=== PATIENT | female | born 1985 | race Two or more races ===

== ENCOUNTER 2018-09-03 16:57 | Emergency (ER) | payer MEDICAID, OTHER ==
[~2018-09-03] VITALS: Ht 154.9 cm; Wt 109.0 kg
[~2018-09-03 16:57] MED LIST: CYCLOBENZAPRINE; METHOCARBAMOL
[2018-09-03 23:59] LABS: CHLORIDE 102 mEq/L (98-107)
[2018-09-03 23:59] LABS: CLARITY URINE CLEAR (CLEAR); COLOR URINE YELLOW (YELLOW); KETONES URINE TRACE (NEGATIVE); LEUKOCYTE ESTERASE URINE NEGATIVE (NEGATIVE); NITRITE URINE NEGATIVE (NEGATIVE); OCCULT BLOOD URINE NEGATIVE (NEGATIVE); PROTEIN URINE NEGATIVE (NEGATIVE); SPECIFIC GRAVITY URINE 1.026 (1.005-1.030); UROBILINOGEN URINE 0.2 E.U./dL (0.2-1.0)
[2018-09-04] LABS: BASOPHILS % 1.2 % (0.0-2.0); HEMATOCRIT. 42.5 % (36.0-48.0); HEMOGLOBIN. 13.8 g/dL (12.0-16.0); LYMPHOCYTES % 48.2 % (20.0-50.0); MEAN CORPUSCULAR VOLUME 86.3 fL (81.0-99.0); MONOCYTES % 6.4 % (2.0-8.0); NEUTROPHILS % 42.2 % (40.0-76.0); PLATELET 360 x1000/uL (130-400); RED BLOOD CELL COUNT 4.93 mill/uL (4.2-5.4); RED CELL DISTRIBUTION WIDTH 14.5 % (11.6-14.6)
[2018-09-04 00:08] LABS: HCG SCREEN NEGATIVE
[2018-09-04] MEDS ORDERED: IBUPROFEN 800MG TABLET PO ONE (00:15)
[2018-09-04 00:25] VITALS: BP 118/71
== END 2018-09-04 00:35 | disposition home or self-care (01) ==
LOC: ER 16:57
DX: M10.9 Gout, unspecified (principal)
CPT/HCPCS: 36415; 73630; 81025; 84550; 84703; 99284